=== PATIENT | female | born 2000 | race Caucasian/White ===

== ENCOUNTER 2018-06-29 17:01 | Emergency (ER) | payer BC ==
[2018-06-29 17:16] VITALS: RESP 18
[2018-06-29] MEDS ORDERED: DIPH,PERTUS(ACELL)TETVAC-LF 0.5 ML VIAL IM ONE (17:38)
--- NOTE | 2018-06-29 18:26 | XR ---
Left foot and left ankle HISTORY: Trauma and pain 3 views of the left foot and 3 views of the left ankle Bone mineralization, joint spaces and alignment are maintained. Soft tissue swelling noted at the ank le. IMPRESSION: No fracture or dislocation of the left foot or ankle
--- NOTE | 2018-06-29 18:33 | ED ---
General Adult HPI - General Chief complaint: Extremity Injury, Lower Stated complaint: ankle injury Time Seen by Provider: 06/29/18 17:28 Source: patient, RN notes reviewed, old records reviewed Mode of arrival: wheelchair Limitations: no limitations - History of Present Illness Initial comments: 17-year-old female patient upper intestinal history presents to ED with a left ankle injury. Patient reports that she was walking down a ramp from a moving truck approximately 18 inches off the ground when she actually stepped off of it, and he suffered an ankle inversion injury to her left ankle. Patient also suffered a minor abrasion to her right knee. Patient has been ambulatory with pain in her left ankle. Patient has any other injury sustained. Patient has any trauma to head or neck. Patient deniesa ny loss of consciousness. Patient does not know date of last tetanus. Patient declines tetanus updated today. Systemic: Pt denies fatigue, fever/chills, rash. Pt denies weakness, night sweats, weight loss. Neuro: Pt denies headache, visual disturbances, syncope or pre-syncope. HEENT: Pt denies ocular discharge or irritation, otalgia, rhinorrhea, pharyngitis or notable lymphadenopathy. Cardiopulmonary: Pt denies chest pain, SOB, heart palpitations, dyspnea on exertion. Abdominal/GI: Pt denies abdominal pain, n/v/d. : Pt denies dysuria, burning w/ urination, frequency/urgency. Denies new onset urinary or bowel incontinence. MSK: Pt denies loss of strength or function in extremities. Neuro: Pt denies new onset weakness, paresthesias. - Related Data Previous Rx's Medication Instructions Recorded Ondansetron Odt [Zofran Odt] 4 mg PO Q8HR PRN #12 tab 04/07/16 Allergies Allergy/AdvReac Type Severity Reaction Status Date / Time codeine Allergy Swelling Verified 06/29/18 17:16 Iodinated Contrast- Oral and Allergy Swelling Verified 06/29/18 17:16 IV Dye [Iodinated Contrast Media - Oral and] Penicillins Allergy Rash/Hives Verified 06/29/18 17:16 shellfish derived [Shellfish] Allergy Swelling Verified 06/29/18 17:16 Review of Systems ROS Statement: Those systems with pertinent positive or pertinent negative responses have been documented in the HPI. ROS Other: All systems not noted in ROS Statement are negative. Past Medical History Past Medical History: Asthma History of Any Multi-Drug Resistant Organisms: None Reported Past Surgical History: Cholecystectomy, Tonsillectomy Past Psychological History: No Psychological Hx Reported Smoking Status: Never smoker Past Alcohol Use History: None Reported Past Drug Use History: None Reported General Exam - General Exam Comments Initial Comments: Constitutional: NAD, AOX3, Pt has pleasant affect. HEENT: NC/AT, trachea midline, neck supple, no lymphadenopathy. Posterior pharynx non erythematous, without exudates. External ears appear normal, without discharge. Mucous membranes moist. Eyes PERRLA, EOM intact. There is no scleral icterus. No pallor noted. Cardiopulmonary: RRR, no murmurs, rubs or gallops, no JVD noted. Lungs CTAB in anterior and posterior la. No peripheral edema. Abdominal exam: Abdomen soft and non-distended. Abdomen non-tender to palpation in all 4 quadrants. Bowel sounds active in LLQ. No hepatosplenomegaly. No ecchymosis Neuro: CN II-XII grossly intact. No nuchal rigidity. MSK: Mild amount of edema and ecchymosis on lateral malleous of L ankle. Plantarflexion and dorsiflexion intact. Sensation intact. . Pt able to wiggle toes. No posterior calf tenderness bilaterally, homans sign negative bilaterally. Posterior tibialis and radial pulse +2 bilaterally. Sensation intact in upper and lower extremities. No proximal tibia/fibula tenderness. No other areas of tenderness. Patient placed in posterior ankle splint, neurovascularly intact after splint placement. Limitations: no limitations Course Vital Signs 06/29/18 17:12 Temperature 98.7 F Pulse Rate 100 Respiratory 18 Rate Blood Pressure 111/70 O2 Sat by Pulse 97 Oximetry Medical Decision Making - Medical Decision Making 17-year-old female patient upper intestinal history presents to ED with a left ankle injury. Patient reports that she was walking down a ramp from a moving truck approximately 18 inches off the ground when she actually stepped off of it, and he suffered an ankle inversion injury to her left ankle. Patient also suffered a minor abrasion to her right knee. Patient has been ambulatory with pain in her left ankle. Patient has any other injury sustained. Patient has any trauma to head or neck. Patient deniesa ny loss of consciousness. Patient does not know date of last tetanus. Patient declines tetanus updated today. Patient vital signs stable, afebrile. Physical exam displayed: Mild amount of edema and ecchymosis on lateral malleous of L ankle. Plantarflexion and dorsiflexion intact. Sensation intact. . Pt able to wiggle toes. No posterior calf tenderness bilaterally, homans sign negative bilaterally. Posterior tibialis and radial pulse +2 bilaterally. Sensation intact in upper and lower extremities. Plain films of left foot and ankle did not display any acute pathology. Patient placed in posterior ankle splint, neurovascularly intact after splint placement. Patient to use crutches, not bear weight. Patient to follow up with orthopedic consult 12 days. Patient to follow-up with PCP in 1-2 days. Patient to return to ER if condition worsens in any way. Disposition Clinical Impression: Ankle sprain Disposition: HOME SELF-CARE Condition: Stable Instructions (If sedation given, give patient instructions): Ankle Sprain (ED) Additional Instructions: Patient to adhere to previously discussed treatment plan and will take medication(s) as directed. Patient to follow up with PCP in 1-2 days. Patient to return to ED if symptoms do not improve. May use Tylenol or Motrin for pain. Is patient prescribed a controlled substance at d/c from ED?: No Referrals: Ifeanyi cD MD [Primary Care Provider] - 1-2 days Abelino Livingston MD [STAFF PHYSICIAN] - 1-2 days
[2018-06-29 19:12] VITALS: BP 134/76; PULSE 110; TEMP 98.8
== END 2018-06-29 19:12 | disposition home or self-care (01) ==
LOC: EC 17:01
DX: S93.402A Sprain of unspecified ligament of left ankle, initial encounter (principal); S80.211A Abrasion, right knee, initial encounter; Z91.19 Patient's noncompliance with other medical treatment and regimen; Z88.0 Allergy status to penicillin; Z88.5 Allergy status to narcotic agent; Z91.013 Allergy to seafood; Z91.041 Radiographic dye allergy status; W17.89XA Other fall from one level to another, initial encounter; Y93.01 Activity, walking, marching and hiking
CPT/HCPCS: 29515; 99284

== ENCOUNTER 2018-11-28 14:07 | Emergency (ER) | payer BC ==
[2018-11-28] MEDS ORDERED: SODIUM CHLORIDE 0.9% 1,000 ML IV STA (15:08)
[2018-11-28] MEDS ORDERED: FAMOTIDINE 20 MG/2 ML VIAL IV STA (15:09)
[2018-11-28] MEDS ORDERED: diphenhydrAMINE 50 MG/ML 1 ML VIAL IVP STA (15:09)
[2018-11-28] MEDS ORDERED: methylPREDNISolone SOD SUCCI 125 MG/2 ML VIAL IV STA (15:09)
[2018-11-28 15:34] LABS: Basophils % (A) 0 %; Eosinophils # (A) 0.1 k/uL (0-0.7); Eosinophils % (A) 1 %; HCT 45.8 % (34.0-46.0); HGB 14.7 gm/dL (11.4-16.0); Lymphocytes # (A) 2.8 k/uL (1.0-4.8); Lymphocytes % (A) 28 %; MCH 27.1 pg (25.0-35.0); MCHC 32.1 g/dL (31.0-37.0); MCV 84.4 fL (80.0-100.0); Mean Platelet Volume 7.6; Monocytes # (A) 0.4 k/uL (0-1.0); Monocytes % (A) 4 %; Neutrophils # (A) 6.5 k/uL (1.3-7.7); Neutrophils % (A) 65 %; Platelet Count 354 k/uL (150-450); RBC 5.43 m/uL (3.80-5.40); RDW 14.1 % (11.5-15.5); WBC 9.9 k/uL (4.0-11.0)
[2018-11-28 15:42] LABS: Appearance,Urine Cloudy (Clear); Bilirubin,Urine Negative (Negative); Blood,Urine Negative (Negative); Color,Urine Yellow; Glucose,Urine (UA) Negative (Negative); Ketones,Urine Negative (Negative); Leukocyte Esterase,Urine Moderate (Negative); Mucus,Urine Occasional /hpf; Nitrite,Urine Negative (Negative); PH, Urine 5.5 (5.0-8.0); Protein,Urine Negative (Negative); Specific Gravity,Urine 1.023 (1.001-1.035); Squamous Epithelial Cell,Urine 6 /hpf (0-4); Urobilinogen,Urine <2.0 mg/dL (<2.0)
[2018-11-28 15:43] LABS: ALT 37 U/L (9-52); AST 36 U/L (14-36); African American GFR (CKD) >90 (>60 ml/min/1.73 sqM); Albumin 4.9 g/dL (3.5-5.0); Alkaline Phosphatase 71 U/L (38-126); Anion Gap 13 mmol/L; Blood Urea Nitrogen 11 mg/dL (7-17); Calcium 9.9 mg/dL (8.4-10.2); Carbon Dioxide 23 mmol/L (22-30); Chloride 104 mmol/L (98-107); Glucose 87 mg/dL (74-99); Potassium 4.5 mmol/L (3.5-5.1); Sodium 140 mmol/L (137-145)
--- NOTE | 2018-11-28 17:06 | CT ---
EXAMINATION TYPE: CT abdomen pelvis w con DATE OF EXAM: 11/28/2018 COMPARISON: None HISTORY: RLQ pain CT DLP: 978.9 mGycm Automated exposure control for dose reduction was used. TECHNIQUE: Helical acquisition of images was performed from the lung bases through the pelvis. CONTRAST: Performed without Oral Contrast and with IV Contrast, patient injected with 100 mL of Isovue 300. FINDINGS: Lung bases are clear. There is no pleural effusion. Heart size is normal. There is no pericardial eff usion. Liver spleen stomach pancreas appear normal. Bile ducts are not dilated. There are clips from cholecy stectomy. There is no adrenal mass. Kidneys show satisfactory contrast opacification. There is no hydronephrosi s. Ureters are not dilated. Bladder distends smoothly. There is no inguinal hernia. Uterus is anteverted. There is no free fluid in the pelvis. There is probably 2.5 cm cyst on the righ t ovary. The appendix appears normal. There is no mesenteric edema. There is no sign of free air. There is no ascites. There is minimal wal l thickening of the ascending colon. Terminal ileum appears normal. Lumbar vertebra have normal spacing and alignment. Bony pelvis appears intact. I see no bony destruct jay process. IMPRESSION: NORMAL APPENDIX. THERE IS EVIDENCE OF MILD WALL THICKENING OF THE ASCENDING COLON THAT COULD RELATE T O MILD NONSPECIFIC COLITIS.
--- NOTE | 2018-11-28 18:05 | ED ---
Abdominal Pain HPI - General Chief Complaint: Abdominal Pain Stated Complaint: possible appendicitis Time Seen by Provider: 11/28/18 14:10 Source: patient Mode of arrival: ambulatory Limitations: no limitations - History of Present Illness Initial Comments: The patient is a 18-year-old female who presents to the emergency department from Dr. Tavera's office. She states that she began having periumbilical pain that started on Saturday. The pain has now localized to her right lower quadrant. She has associated nausea with dry heaving. Admits to decreased appetite. She denies diarrhea, constipation, melanotic stools or hematochezia. No changes in her urination to include dysuria, hematuria or difficulty voiding. Her last menstrual period was one week ago. She denies any abnormal vaginal bleeding or discharge. No concern for sexually transmitted infections or . She did go to Dr. Tavera's office today. He wanted to get a CT of her abdomen and pelvis however she does have a contrast ALLERGY. He sent her into the emergency department for prep and CT exam. The patient denies any chest pain or shortness of breath. No fevers at home. There are no other alleviating, precipitating or modifying factors - Related Data Previous Rx's Medication Instructions Recorded Ondansetron Odt [Zofran Odt] 4 mg PO Q8HR PRN #12 tab 04/07/16 Ciprofloxacin HCl [Cipro] 500 mg PO Q12HR #20 tablet 11/28/18 metroNIDAZOLE [Flagyl] 500 mg PO TID #30 tab 11/28/18 Allergies Allergy/AdvReac Type Severity Reaction Status Date / Time codeine Allergy Swelling Verified 11/28/18 14:11 Iodinated Contrast- Oral and Allergy Swelling Verified 11/28/18 14:11 IV Dye [Iodinated Contrast Media - Oral and] morphine Allergy Unknown Verified 11/28/18 14:12 Penicillins Allergy Rash/Hives Verified 11/28/18 14:11 shellfish derived [Shellfish] Allergy Swelling Verified 11/28/18 14:11 Review of Systems ROS Statement: Those systems with pertinent positive or pertinent negative responses have been documented in the HPI. ROS Other: All systems not noted in ROS Statement are negative. Past Medical History Past Medical History: Asthma History of Any Multi-Drug Resistant Organisms: None Reported Past Surgical History: Cholecystectomy, Tonsillectomy Past Psychological History: No Psychological Hx Reported Smoking Status: Never smoker Past Alcohol Use History: None Reported Past Drug Use History: None Reported General Exam Limitations: no limitations General appearance: alert, in no apparent distress Head exam: Present: atraumatic, normocephalic, normal inspection Eye exam: Present: normal appearance, PERRL, EOMI. Absent: scleral icterus, conjunctival injection, periorbital swelling ENT exam: Present: normal exam, mucous membranes moist Neck exam: Present: normal inspection. Absent: tenderness, meningismus, lymphadenopathy Respiratory exam: Present: normal lung sounds bilaterally. Absent: respiratory distress, wheezes, rales, rhonchi, stridor Cardiovascular Exam: Present: regular rate, normal rhythm, normal heart sounds. Absent: systolic murmur, diastolic murmur, rubs, gallop, clicks GI/Abdominal exam: Present: soft, tenderness (mild tenderness in the periumbilical region. No peritoneal signs. ), normal bowel sounds. Absent: distended, guarding, rebound, rigid Extremities exam: Present: normal inspection, full ROM, normal capillary refill. Absent: tenderness, pedal edema, joint swelling, calf tenderness Back exam: Present: normal inspection Neurological exam: Present: alert, oriented X3, CN II-XII intact Psychiatric exam: Present: normal affect, normal mood Skin exam: Present: warm, dry, intact, normal color. Absent: rash Course Vital Signs 11/28/18 11/28/18 14:09 18:38 Temperature 98.5 F 98.0 F Pulse Rate 86 82 Respiratory 16 17 Rate Blood Pressure 123/79 110/70 O2 Sat by Pulse 98 99 Oximetry Medical Decision Making - Medical Decision Making Upon arrival the patient is placed in room 27. She is hooked up to continuous pulse ox and cardiac monitoring. We did obtain IV access. The patient was given the rapid prep for her contrast ALLERGY. She is also given a liter bolus of 0.9% normal saline. I did complete laboratory studies. The patient provides a urinalysis. She is sent for CT of her abdomen and pelvis. Upon return of the results, I did review them and discussed with the patient. I did call and discuss the case with Dr. Tavera. As the patient's CT did demonstrate colitis, I discussed antibiotic use with him. He does recommended I place the patient on antibiotics. The patient does have a penicillin ALLERGY. He does believe that the benefits of use with Cipro and Flagyl outweigh the risks. I did discuss this with the patient. I did inform her of the side effect profile. I instructed her that she will need to limit her physical activity due to risk of tendon rupture. The patient understood this. She needs to call on Saturday and follow up with Dr. Tavera in office. The patient understood this. If she has any new or worsening symptoms she should return to the emergency room. The patient was in agreement treatment plan she is discharged home in stable condition - Differential Diagnosis acute abd pain, acute colitis - Lab Data Result diagrams: 11/28/18 14:58 11/28/18 14:58 Lab Results 11/28/18 11/28/18 11/28/18 Range/Units 14:58 14:58 14:58 WBC 9.9 (4.0-11.0) k/uL RBC 5.43 H (3.80-5.40) m/uL Hgb 14.7 (11.4-16.0) gm/dL Hct 45.8 (34.0-46.0) % MCV 84.4 (80.0-100.0) fL MCH 27.1 (25.0-35.0) pg MCHC 32.1 (31.0-37.0) g/dL RDW 14.1 (11.5-15.5) % Plt Count 354 (150-450) k/uL Neutrophils % 65 % Lymphocytes % 28 % Monocytes % 4 % Eosinophils % 1 % Basophils % 0 % Neutrophils # 6.5 (1.3-7.7) k/uL Lymphocytes # 2.8 (1.0-4.8) k/uL Monocytes # 0.4 (0-1.0) k/uL Eosinophils # 0.1 (0-0.7) k/uL Basophils # 0.0 (0-0.2) k/uL Sodium 140 (137-145) mmol/L Potassium 4.5 (3.5-5.1) mmol/L Chloride 104 (98-107) mmol/L Carbon Dioxide 23 (22-30) mmol/L Anion Gap 13 mmol/L BUN 11 (7-17) mg/dL Creatinine 0.61 (0.52-1.04) mg/dL Est GFR (CKD-EPI)AfAm >90 (>60 ml/min/1.73 sqM) Est GFR (CKD-EPI)NonAf >90 (>60 ml/min/1.73 sqM) Glucose 87 (74-99) mg/dL Plasma Lactic Acid Magnus (0.7-2.0) mmol/L Calcium 9.9 (8.4-10.2) mg/dL Total Bilirubin 1.0 (0.2-1.3) mg/dL AST 36 (14-36) U/L ALT 37 (9-52) U/L Alkaline Phosphatase 71 (38-126) U/L Total Protein 8.0 (6.3-8.2) g/dL Albumin 4.9 (3.5-5.0) g/dL Lipase 89 (23-300) U/L Urine Color Urine Appearance (Clear) Urine pH (5.0-8.0) Ur Specific [place] (1.001-1.035) Urine Protein (Negative) Urine Glucose (UA) (Negative) Urine Ketones (Negative) Urine Blood (Negative) Urine Nitrite (Negative) Urine Bilirubin (Negative) Urine Urobilinogen (<2.0) mg/dL Ur Leukocyte Esterase (Negative) Urine WBC (0-5) /hpf Ur Squamous Epith Cells (0-4) /hpf Urine Mucus (None) /hpf Urine HCG, Qual Not Detected (Not Detectd) 11/28/18 11/28/18 Range/Units 14:58 14:58 WBC (4.0-11.0) k/uL RBC (3.80-5.40) m/uL Hgb (11.4-16.0) gm/dL Hct (34.0-46.0) % MCV (80.0-100.0) fL MCH (25.0-35.0) pg MCHC (31.0-37.0) g/dL RDW (11.5-15.5) % Plt Count (150-450) k/uL Neutrophils % % Lymphocytes % % Monocytes % % Eosinophils % % Basophils % % Neutrophils # (1.3-7.7) k/uL Lymphocytes # (1.0-4.8) k/uL Monocytes # (0-1.0) k/uL Eosinophils # (0-0.7) k/uL Basophils # (0-0.2) k/uL Sodium (137-145) mmol/L Potassium (3.5-5.1) mmol/L Chloride (98-107) mmol/L Carbon Dioxide (22-30) mmol/L Anion Gap mmol/L BUN (7-17) mg/dL Creatinine (0.52-1.04) mg/dL Est GFR (CKD-EPI)AfAm (>60 ml/min/1.73 sqM) Est GFR (CKD-EPI)NonAf (>60 ml/min/1.73 sqM) Glucose (74-99) mg/dL Plasma Lactic Acid Magnus 1.1 (0.7-2.0) mmol/L Calcium (8.4-10.2) mg/dL Total Bilirubin (0.2-1.3) mg/dL AST (14-36) U/L ALT (9-52) U/L Alkaline Phosphatase (38-126) U/L Total Protein (6.3-8.2) g/dL Albumin (3.5-5.0) g/dL Lipase (23-300) U/L Urine Color Yellow Urine Appearance Cloudy H (Clear) Urine pH 5.5 (5.0-8.0) Ur Specific [place] 1.023 (1.001-1.035) Urine Protein Negative (Negative) Urine Glucose (UA) Negative (Negative) Urine Ketones Negative (Negative) Urine Blood Negative (Negative) Urine Nitrite Negative (Negative) Urine Bilirubin Negative (Negative) Urine Urobilinogen <2.0 (<2.0) mg/dL Ur Leukocyte Esterase Moderate H (Negative) Urine WBC 16 H (0-5) /hpf Ur Squamous Epith Cells 6 H (0-4) /hpf Urine Mucus Occasional H (None) /hpf Urine HCG, Qual (Not Detectd) Disposition Clinical Impression: Abdominal pain, Acute colitis Disposition: HOME SELF-CARE Condition: Stable Instructions (If sedation given, give patient instructions): Abdominal Pain (ED) Additional Instructions: Please follow-up with Dr. Wright in 2-4 days. Return to the emergency room for any new or worsening symptoms Prescriptions: Ciprofloxacin HCl [Cipro] 500 mg PO Q12HR #20 tablet metroNIDAZOLE [Flagyl] 500 mg PO TID #30 tab Is patient prescribed a controlled substance at d/c from ED?: No Referrals: McPhilimy,Tawanda, DO [Primary Care Provider] - 1-2 days Time of Disposition: 18:16
[2018-11-28 18:39] VITALS: BP 110/70; PULSE 82; RESP 17; TEMP 98
== END 2018-11-28 18:41 | disposition home or self-care (01) ==
LOC: EC 14:07
DX: K52.9 Noninfective gastroenteritis and colitis, unspecified (principal); Z90.49 Acquired absence of other specified parts of digestive tract; Z88.5 Allergy status to narcotic agent; Z91.041 Radiographic dye allergy status; Z88.0 Allergy status to penicillin; Z91.013 Allergy to seafood
CPT/HCPCS: 99284; 96374; 96375 ×2; 96361 ×2; 36415; 80053; 83605; 83690; 85025; 81001; 81025; 87086; 74177; J1200; J2930; Q9967

== ENCOUNTER 2019-09-24 09:40 | Outpatient (CLI) | payer BC, OTHER ==
[2019-09-24 10:47] LABS: Appearance,Urine Cloudy (Clear); Bacteria,Urine Many /hpf; Bilirubin,Urine Negative (Negative); Blood,Urine Small (Negative); Color,Urine Yellow; Glucose,Urine (UA) Negative (Negative); Ketones,Urine 4+ (Negative); Leukocyte Esterase,Urine Large (Negative); Mucus,Urine Many /hpf; Nitrite,Urine Negative (Negative); Protein,Urine 2+ (Negative); RBC,Urine 34 /hpf (0-5); Squamous Epithelial Cell,Urine 8 /hpf (0-4); WBC,Urine >182 /hpf (0-5)
[2019-09-24] MEDS ORDERED: ONDANSETRON 4 MG/2 ML VIAL IVP STA (10:59)
[2019-09-24] MEDS: LACTATED RINGERS 1,000 ML IV SCH ×3 (11:11→13:18)
[2019-09-24 13:22] LABS: Basophils % (A) 0 %; Eosinophils % (A) 0 %; HCT 36.4 % (34.0-46.0); HGB 11.5 gm/dL (11.4-16.0); Lymphocytes # (A) 1.5 k/uL (1.0-4.8); Lymphocytes % (A) 11 %; MCH 26.6 pg (25.0-35.0); MCHC 31.6 g/dL (31.0-37.0); MCV 84.2 fL (80.0-100.0); Mean Platelet Volume 8.8; Monocytes # (A) 0.8 k/uL (0-1.0); Monocytes % (A) 6 %; Neutrophils # (A) 10.9 k/uL (1.3-7.7); Neutrophils % (A) 81 %; Platelet Count 245 k/uL (150-450); RBC 4.33 m/uL (3.80-5.40); RDW 13.8 % (11.5-15.5); WBC 13.4 k/uL (4.0-11.0)
[2019-09-24 15:04] VITALS: BP 122/73; PULSE 133; RESP 16; TEMP 99.1
--- NOTE | 2019-10-10 11:13 | P.MSEPDOC ---
Presenting Problems - Arrival Data Date of Arrival on Unit: 09/24/19 Time of Arrival on Unit: 09:40 Mode of Transport: Ambulatory - Complaint OB-Reason for Admission/Chief Complaint: Acute Nausea/Vomiting, Pain, Signs/Symptoms UTI Comment: constant lower back pain, rates 7 on 0-10 scale Medical History - Information : 1 Para: 0 Term: 0 : 0 Abortions: Spontaneous or Elective: 0 Number of Living Children: 0 - Gestational Age Gestational Age by FAUSTINO (wks/days): 31 Weeks and 2 Days Review of Systems - Review of Systems Constitutional: No problems Breast: No problems ENT: No problems Cardiovascular: No problems Respiratory: No problems Gastrointestinal: No problems Genitourinary: No problems Musculoskeletal: No problems Neurological: No problems Skin: No problems Vital Signs - Temperature Temperature: 99.1 F Temperature Source: Oral - Pulse Right Sitting Pulse Rate: 133 Pulse Assessment Method: Automatic Cuff - Respirations Respiratory Rate: 16 Oxygen Delivery Method: Room Air O2 Sat by Pulse Oximetry: 96 - Blood Pressure Right Arm Blood Pressure: 122/73 Blood Pressure Mean: 89 Blood Pressure Source: Automatic Cuff Medical Screen Scoring (Pre) - Cervical Exam Dilation: Exam Deferred Effacement: Exam Deferred - Uterine Contractions Frequency: N/A Duration: N/A Intensity: N/A - Maternal Vital Signs Maternal Temperature: N/A Maternal Blood Pressure: N/A Signs of Preeclampsia: N/A Maternal Respirations: N/A - Maternal Trauma Maternal Trauma: N/A - Assessment - Baby A Baseline FHR: 150 Heart Rate - NICHD Category: Category I (Normal) = 0 NST: Reactive Position: N/A Station: N/A - Total Score - Baby A Total Score - Baby A: 0 - Total Score - Baby B Total Score - Baby B: 0 - Total Score - Baby C Total Score - Baby C: 0 - Level of Risk - Baby A Level of Risk - Baby A: Low (0-5) - Level of Risk - Baby B Level of Risk - Baby B: Low (0-5) - Level of Risk - Baby C Level of Risk - Baby C: Low (0-5) Physician Notification (Pre) - Physician Notified Physician Notified Date: 09/24/19 Physician Notified Time: 13:56 New Order Received: Yes (d/c home) Disposition - Disposition OB Disposition: Discharge to home Discharge Date: 09/24/19 Discharge Time: 14:20 I agree with the RN Medical Screening Exam: Yes Risk & Benefit of care provided described in d/c instruction: Yes Diagnosis: RELATED CONDITIONS, UNSPECIFIED, THIRD TRIMESTER
== END 2019-09-24 14:20 | disposition home or self-care (01) ==
LOC: FBPOP 09:40
PROVIDERS: ATTEND Obstetrics & Gynecology
DX: O26.93 Pregnancy related conditions, unspecified, third trimester (principal); Z3A.31 31 weeks gestation of pregnancy
CPT/HCPCS: 59025; 99214; 96361; 96374; 85025; 81001; 87086; 87077; 87186; J2405

== ENCOUNTER 2019-11-24 14:35 | Inpatient (IN) | payer OTHER ==
[2019-11-26] MEDS ORDERED: METHYLERGONOVINE 0.2 MG/ML 1 ML AMP IM PRN (06:47)
[2019-11-26] MEDS ORDERED: OXYTOCIN 10 UNIT/ML 1 ML VIAL IM PRN (06:47)
[2019-11-26] MEDS ORDERED: CARBOPROST TROMETHAMINE 250 MCG/ML 1 ML AMP IM PRN (06:47)
[2019-11-26] MEDS ORDERED: TERBUTALINE 1 MG/ML VIAL SQ PRN (06:47)
[2019-11-26] MEDS ORDERED: LIDOCAINE 0.5% (PF) 5 MG/ML (50 ML SDV) SQ PRN (06:47)
[2019-11-26] MEDS: LACTATED RINGERS 1,000 ML IV SCH ×2 (06:48→12:34)
[2019-11-26] MEDS ORDERED: OXYTOCIN 30 UNITS/500 ML NS 30 UNIT in SALINE 1 500ML.BAG IV SCH (07:00)
[2019-11-26 07:10] LABS: Basophils % (A) 0 %; Eosinophils # (A) 0.1 k/uL (0-0.7); Eosinophils % (A) 1 %; HGB 12.5 gm/dL (11.4-16.0); Lymphocytes % (A) 23 %; MCH 25.7 pg (25.0-35.0); MCHC 32.1 g/dL (31.0-37.0); Mean Platelet Volume 9.7; Monocytes # (A) 0.5 k/uL (0-1.0); Monocytes % (A) 4 %; Neutrophils # (A) 9.1 k/uL (1.3-7.7); Neutrophils % (A) 71 %; Platelet Count 306 k/uL (150-450); RBC 4.88 m/uL (3.80-5.40); RDW 14.8 % (11.5-15.5); WBC 12.9 k/uL (3.8-10.6)
--- NOTE | 2019-11-26 08:56 | P.HPOB ---
History of Present Illness H&P Date: 11/26/19 Chief Complaint: 40-2/7 weeks, induction Is a 19-year-old 1 para 0 admitted at 40-2/7 weeks as established by 9 week ultrasound. She is admitted for postdates induction of labor with favorable cervix. Her has been uncomplicated though she is known to be Rh- and received RhoGAM at 28 weeks. Group B strep status is negative. On labor and delivery, all signs reassuring with reactive heart rate tracing, category 1. Obstetrical history: 1 para 0 with current statistics listed in history present illness. EDC of 11/24/2019 was established by 9 week ultrasound. Laboratory workup demonstrates a blood type of B- with a negative antibody screen. Rubella status is immune. Remainder of the laboratory workup was within normal limits. Early Glucola as well as second trimester Glucola were within normal limits. Group B strep status is negative. Gynecologic history: Unremarkable with no history of any infections to include S TDs. Review of Systems Review of systems is confined to history of present illness. Past Medical History Past Medical History: Asthma Additional Past Medical History / Comment(s): childhood asthma, IBS resolved History of Any Multi-Drug Resistant Organisms: None Reported Past Surgical History: Cholecystectomy, Tonsillectomy Additional Past Surgical History / Comment(s): neck cyst removed Past Anesthesia/Blood Transfusion Reactions: No Reported Reaction Past Psychological History: No Psychological Hx Reported Smoking Status: Never smoker Past Alcohol Use History: None Reported Past Drug Use History: None Reported - Past Family History Mother Family Medical History: No Reported History Medications and Allergies Home Medications Medication Instructions Recorded Confirmed Type Ondansetron Odt [Zofran Odt] 4 mg PO Q8HR PRN #12 tab 04/07/16 11/26/19 Rx Esomeprazole Magnesium [NexIUM] 1 tab PO DAILY 09/24/19 11/26/19 History Allergies Allergy/AdvReac Type Severity Reaction Status Date / Time codeine Allergy Swelling Verified 11/26/19 06:46 Iodinated Contrast Media Allergy Swelling Verified 11/26/19 06:46 [Iodinated Contrast Media - Oral and] morphine Allergy Swelling Verified 11/26/19 06:46 Penicillins Allergy Rash/Hives Verified 11/26/19 06:46 shellfish derived [Shellfish] Allergy Swelling Verified 11/26/19 06:46 Exam Vital Signs Temp Pulse Resp BP Pulse Ox 11/26/19 06:55 97.8 F 114 H 18 130/79 98 Intake and Output 11/25/19 11/26/19 11/26/19 22:59 06:59 14:59 Other: Weight 95.708 kg In general, this is a well-developed, well-nourished white female in no acute distress. Her heart has a regular rhythm and rate without murmur. Her lungs are clear to auscultation bilaterally in all la. Her abdomen is gravid, nondistended, has normal active bowel sounds, soft, nontender, and without any palpable masses aside from uterine fundus. Her extremities without any cyanosis, clubbing, or significant edema and are nontender to palpation bilaterally. Digital cervical examination on straights her cervix to be 37 m dilated, 70% effaced, the vertex in presentation at -2 station. Artificial rupture of membranes is carried out demonstrating clear fluid. Results Result Diagrams: 11/26/19 06:50 Abnormal Lab Results - Last 24 Hours (Table) 11/26/19 Range/Units 06:50 WBC 12.9 H (3.8-10.6) k/uL Neutrophils # 9.1 H (1.3-7.7) k/uL Assessment and Plan (1) Post-dates Current Visit: Yes Status: Acute Code(s): O48.0 - POST-TERM SNOMED Code(s): 20643966 Plan: The patient is admitted for Pitocin induction which has been started. She has undergone artificial rupture of membranes. She will have close maternal and surveillance and expectant management will be practiced. She is a good candidate for either IV or epidural analgesia, whichever she may choose.
[2019-11-26] MEDS ORDERED: SODIUM CHLORIDE 0.9% 100 ML BAG ONE ×2 (12:07→19:47)
[2019-11-26] MEDS ORDERED: ROPIVACAINE 5MG/ML 20ML VIAL ONE ×2 (12:07→19:47)
[2019-11-26] MEDS ORDERED: fentaNYL (PF) 50 MCG/ML 5 ML AMP ONE ×2 (12:07→19:47)
[2019-11-26] MEDS ORDERED: CITRIC ACID-SODIUM CITRATE 15 ML CUP PO ONE (19:40)
[2019-11-26] MEDS ORDERED: ONDANSETRON 4 MG/2 ML VIAL ONE (19:47)
[2019-11-26] MEDS ORDERED: KETOROLAC 30 MG/ML 1 ML VIAL ONE (19:47)
[2019-11-26] MEDS ORDERED: HYDROmorphone (PF) 1 MG/ML ONE (19:47)
[2019-11-26] MEDS ORDERED: PROPOFOL 10 MG/ML 20 ML VIAL IV ONE (19:47)
[2019-11-26] MEDS ORDERED: CHLOROPROCAINE 3% 30 MG/ML 20 ML VIAL ONE (19:47)
[2019-11-26] MEDS ORDERED: OXYTOCIN 10 UNIT/ML 1 ML VIAL ONE (19:47)
[2019-11-26] MEDS ORDERED: SUCCINYLCHOLINE CHLORIDE 100 MG/5 ML SYR IV ONE (19:47)
[2019-11-26] MEDS ORDERED: CLINDAMYCIN 150 MG/ML 4 ML VIAL ONE (19:47)
[2019-11-26] MEDS ORDERED: diphenhydrAMINE 50 MG CAP PO PRN (20:55)
[2019-11-26] MEDS ORDERED: ZOLPIDEM 5 MG TAB PO PRN (20:55)
[2019-11-26] MEDS ORDERED: diphenhydrAMINE 50 MG/ML 1 ML VIAL IVP PRN ×2 (20:55)
[2019-11-26] MEDS ORDERED: ACETAMINOPHEN TAB 325 MG TAB PO PRN (20:55)
[2019-11-26] MEDS ORDERED: HYDROcodone/APAP 7.5-325MG 1 EACH TAB PO PRN (20:55)
[2019-11-26] MEDS ORDERED: NALOXONE 0.4 MG/ML 1 ML VIAL IV PRN (20:55)
[2019-11-26] MEDS ORDERED: ONDANSETRON 4 MG/2 ML VIAL IVP PRN (20:55)
[2019-11-26] MEDS ORDERED: diphenhydrAMINE 25 MG CAP PO PRN (20:55)
[2019-11-26] MEDS ORDERED: SIMETHICONE 80 MG CHEWABLE PO PRN (20:55)
[2019-11-26] MEDS ORDERED: METOCLOPRAMIDE 5 MG/ML 2 ML VIAL IVP PRN (20:55)
[2019-11-26] MEDS ORDERED: HYDROcodone/APAP 5-325MG 1 EACH TAB PO PRN (20:55)
[2019-11-26] MEDS ORDERED: LACTATED RINGERS 1,000 ML IV SCH (21:00)
[2019-11-26] MEDS ORDERED: OXYTOCIN 20 UNITS/1000 ML NS 1,000 ML IV SCH (21:00)
--- NOTE | 2019-11-26 21:07 | P.OP ---
Date of Procedure: 11/26/19 Preoperative Diagnosis: #1. 40-2/7 weeks intrauterine , induction #2. Rh- #3. Arrest of dilation and descent Postoperative Diagnosis: Same plus #4. Nuchal cord 1 Procedure(s) Performed: #1. Primary low-transverse section Anesthesia: MIKI Surgeon: Gurmeet Mayer Track Manager #1: Trisha Puentes Estimated Blood Loss (ml): 650 IV fluids (ml): 1,000 Urine output (ml): 400 Pathology: none sent Condition: stable Disposition: floor Operative Findings: Preoperatively, the patient had labored to approximately 8 cm of dilation with no descent below -2 station. It was forming on the head and no significant dilation changes were made over the course of approximate 2 hours or more. The patient was also having significantly increasing discomfort. She was additionally thought to have a somewhat contracted pelvic shape. Given these findings, we opted to proceed to primary low transverse section. She was taken to the operating room where she was delivered of a viable 7 lbs. 12 oz. baby girl with Apgars of 9 at 1 minute and 9 at 5 minutes delivered in the right occiput anterior position. There was a loose nuchal cord 1 reduced prior to delivery of the body. 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 The placenta was delivered manually, intact, and grossly normal with a grossly normal three-vessel cord. Description of Procedure: The patient was prepped and draped in usual fashion after epidural analgesia was bolused by the anesthesiologist. The epidural was found to be ineffective and general endotracheal anesthesia was established. At that time, a Pfannenstiel incision was made and extended into the abdominal cavity without difficulty. The bladder peritoneum was noted to be distal to the intended site of incision and left intact. A 2 cm incision was made in the transverse plane of the lower uterine segment to enter the uterus at which time clear fluid was again noted. The incision was extended in both directions bluntly. The head was encountered deep in the pelvis and elevated up and through the incision. The nuchal cord was reduced and the remainder of the infant delivered onto the field where the cord was doubly clamped, cut, and the infant passed resuscitative measures with weight and Apgars as noted above. cord blood was collected for evaluation of the necessity for RhoGAM. A segment of cord was doubly clamped, cut, and set aside should cord gases become necessary. The placenta was delivered manually and intact as noted above. The uterus was exteriorized and the interior cavity of the uterus swept of any remaining placental or membranous fragments. The margins of the incision were grasped with Reyna clamps and the incision closed in 2 layers. The first layer was a running lock ing stitch of 0 chromic catgut followed by a running imbricating layer of 0 chromic catgut. There was some bleeding noted at the left angle of the incision which was made hemostatic with a [id number] stitch of 0 chromic catgut. No further bleeding was then noted. The posterior cul-de-sac was suctioned with a guard with the uterine and ovarian findings as noted above, specifically a small possible left ovarian fibroma was noted as described in findings. The posterior cul-de-sac was suctioned with a guard and uterus was replaced within the abdominal cavity. The gutters were swept of any remaining blood, fluid, or clot. After ensuring hemostasis, the parietal peritoneum was loosely reapproximated and layer of muscles examined and found to be hemostatic. The fascia was closed with 2 running stitches of 0 Vicryl proceeding from the lateral margins to the midpoint. The subcutaneous tissues were irrigated, made hemostatic with the Bovie, and reapproximated with a running stitch of 30 plain catgut. The skin was reapproximated with a running subcuticular stitch of 4-0 Vicryl followed by half-inch Steri-Strips placed with Mastisol. Estimated blood loss for the entire case was approximately 650 mL. There were no complications. All sponge, instrument, and needle counts were correct. The patient tolerated the procedure well and proceeded to the recovery room in stable condition. Both mother and infant are resting comfortably in recovery.
[2019-11-26] MEDS ORDERED: HYDROmorphone PCA 10 MG/50 ML BAG IV PRN (22:00)
[2019-11-27] MEDS: KETOROLAC 30 MG/ML 1 ML VIAL IVP PRN ×2 (03:50→10:22)
[2019-11-27 06:03] LABS: Basophils % (A) 0 %; Eosinophils % (A) 0 %; HCT 31.8 % (34.0-46.0); HGB 10.3 gm/dL (11.4-16.0); Lymphocytes # (A) 1.8 k/uL (1.0-4.8); Lymphocytes % (A) 14 %; MCHC 32.3 g/dL (31.0-37.0); MCV 80.4 fL (80.0-100.0); Mean Platelet Volume 9.3; Monocytes # (A) 0.5 k/uL (0-1.0); Monocytes % (A) 4 %; Neutrophils % (A) 81 %; Platelet Count 217 k/uL (150-450); RBC 3.96 m/uL (3.80-5.40); RDW 14.7 % (11.5-15.5); WBC 12.5 k/uL (3.8-10.6)
[2019-11-27] MEDS: SENNOSIDES-DOCUSATE SODIUM 1 EACH TAB PO SCH ×2 (07:43→20:18)
--- NOTE | 2019-11-27 09:44 | P.PNOBGPC ---
Subjective - Subjective Patient reports: Reports appetite normal, Reports voiding normally, Reports pain well controlled, Reports ambulating normally : doing well Objective - Vital Signs Latest vital signs: Vital Signs Temp Pulse Resp BP Pulse Ox 11/27/19 07:54 98.3 F 107 H 17 111/65 11/27/19 04:00 98.9 F 82 16 116/73 95 11/27/19 00:00 98.6 F 82 16 118/70 95 11/26/19 22:50 97.9 F 90 16 122/70 96 11/26/19 22:20 92 16 126/73 97 11/26/19 21:50 91 16 124/66 96 11/26/19 21:35 93 16 128/70 97 11/26/19 21:20 93 16 134/76 100 11/26/19 21:05 99 16 130/74 100 11/26/19 20:50 114 H 16 131/76 90 L Intake and Output 11/26/19 11/27/19 11/27/19 22:59 06:59 14:59 Output Total 700 1300 Balance -700 -1300 Output: Urine 700 1300 Straight 700 - Exam Extremities: Present: normal Abdomen: Present: normal appearance, soft. Absent: distention, tenderness Incision: Present: normal, dry, intact Uterus: Present: normal, firm (The uterine fundus is tonic and a properly tender just below the umbilicus.) - Labs Labs: Abnormal Lab Results - Last 24 Hours (Table) 11/27/19 Range/Units 05:38 WBC 12.5 H (3.8-10.6) k/uL Hgb 10.3 L (11.4-16.0) gm/dL Hct 31.8 L (34.0-46.0) % Neutrophils # 10.0 H (1.3-7.7) k/uL Assessment and Plan (1) Post-dates Current Visit: Yes Status: Acute Code(s): O48.0 - POST-TERM SNOMED Code(s): 28898859 (2) S/P section Current Visit: Yes Status: Acute Code(s): Z98.891 - HISTORY OF UTERINE SCAR FROM PREVIOUS SURGERY SNOMED Code(s): 422694573 Plan: Continue routine postoperative care. I have strongly encouraged the patient amulet in the hallways at least 4 times daily. I will discontinue the [employer] in favor of oral analgesics. We will additionally stop IV fluids but leave the IV in place for this time being. Possible discharge home tomorrow pending no co mplications.
[2019-11-27] MEDS: IBUPROFEN 600 MG TAB PO PRN (20:16)
[2019-11-28] MEDS: IBUPROFEN 600 MG TAB PO PRN ×2 (03:10→09:17)
[2019-11-28 09:05] VITALS: BP 120/73; PULSE 99; RESP 16; TEMP 98.1
[2019-11-28] MEDS: SENNOSIDES-DOCUSATE SODIUM 1 EACH TAB PO SCH (09:17)
--- NOTE | 2019-11-28 09:43 | P.DS ---
Providers Date of admission: 11/26/19 06:29 Expected date of discharge: 11/28/19 Attending physician: Gurmeet Mayer Primary care physician: Stated None Hospital Course: This is a 19-year-old white female 1 para 0 EDC 11/24/2019 40-2/7 weeks' gestation. Patient presented for induction for postdates . Artificial amniorrhexis revealed clear fluid. Oxytocin was started and titrated per hospital protocol. Epidural was placed per her request. A type is B-, rubella status immune, group B strep cultures negative. Please see dictated history and physical for details. Ultimately the decision was made to proceed with a primary low transverse section for failure to descend in the second stage of labor. Patient underwent a primary low transverse section and gave to a liveborn female with scores of 9 and 9 at one and 5 minutes respectively. Infant weighed 7 lbs. 12 oz. or 3510 g. There was a nuchal cord 1. Please see dictated operative note for details. Postoperatively the patient has done very well. This morning she is voiding, ambulating, passing flatus without difficulty. Vital signs are stable and she is afebrile. Fundus is firm and in the midline, symmetric and 18 week size. Extremities are negative for edema incision is clean and dry, intact, with Steri-Strips applied. Breasts are not engorged. Patient is judged to be in very good condition for discharge home. She will follow-up in the office with her primary care physician in 2 weeks. I have reminded her no intercourse, tampons or douching. She will use jufk-[id number]-[id number] Advil or Aleve, or Motrin as needed for pain. In addition, her primary physician has given her prescription for [place] 5/325 mg to be used for moderate to severe pain. Patient will call the office with any fevers shakes or chills, foul smelling or copious lochia, with the passage of large blood clots, with any pain not alleviated by the above products, or indeed with any concerns. Test Baker will follow up with as recommended. Patient Condition at Discharge: Good Plan - Discharge Summary New Discharge Prescriptions: No Action Ondansetron Odt [Zofran Odt] 4 mg PO Q8HR PRN #12 tab PRN Reason: Nausea Esomeprazole Magnesium [NexIUM] 1 tab PO DAILY Discharge Medication List Ondansetron Odt [Zofran Odt] 4 mg PO Q8HR PRN #12 tab 04/07/16 [Rx] Esomeprazole Magnesium [NexIUM] 1 tab PO DAILY 09/24/19 [History] Follow up Appointment(s)/Referral(s): Gurmeet Mayer MD [STAFF PHYSICIAN] - 2 Weeks
== END 2019-11-28 11:39 | disposition home or self-care (01) | DRG 788 ==
LOC: 4FBP 11-26 06:29
PROVIDERS: ADMIT Obstetrics & Gynecology; ATTEND Obstetrics & Gynecology
PROC: 10D00Z1 Extraction of Products of Conception, Low, Open Approach (ICD-10-PCS; principal; 2019-11-26 20:10)
DX: O69.81X0 Labor and delivery complicated by cord around neck, without compression, not applicable or unspecified (principal); O48.0 Post-term pregnancy; O99.52 Diseases of the respiratory system complicating childbirth; O62.1 Secondary uterine inertia; J45.909 Unspecified asthma, uncomplicated; Z90.89 Acquired absence of other organs; Z90.49 Acquired absence of other specified parts of digestive tract; Z3A.40 40 weeks gestation of pregnancy; Z37.0 Single live birth; Z91.041 Radiographic dye allergy status; Z88.5 Allergy status to narcotic agent; Z88.0 Allergy status to penicillin; Z91.013 Allergy to seafood
CPT/HCPCS: 85025; 86850; 86870; 86880; 86900; 86901

== ENCOUNTER 2020-06-24 15:18 | Emergency (ER) | payer OTHER ==
[2020-06-24 15:24] VITALS: BP 129/81; PULSE 96; RESP 20; TEMP 99.4
--- NOTE | 2020-06-24 16:13 | ED ---
Lower Extremity Injury HPI - General Chief Complaint: Extremity Injury, Lower Stated Complaint: Ankle pain Time Seen by Provider: 06/24/20 15:41 Source: patient, RN notes reviewed Mode of arrival: ambulatory Limitations: no limitations - History of Present Illness Initial Comments: 19-year-old female presents emergency Department with chief complaint of right ankle injury. Patient states she steps unevenly on a crack by her porch. Patient states that she felt a snap in her swelling on the lateral portion right ankle. Patient does admit that she's had prior fractures and sprains. Patient states it hurts to ambulate but states that she can ambulate. No paresthesias. No other complaints. - Related Data Home Medications Medication Instructions Recorded Confirmed Esomeprazole Magnesium [NexIUM] 1 tab PO DAILY 09/24/19 11/26/19 Previous Rx's Medication Instructions Recorded Ondansetron Odt [Zofran Odt] 4 mg PO Q8HR PRN #12 tab 04/07/16 Ibuprofen [Motrin] 600 mg PO Q8HR PRN #20 tab 06/24/20 Allergies Allergy/AdvReac Type Severity Reaction Status Date / Time codeine Allergy Swelling Verified 06/24/20 15:24 Iodinated Contrast Media Allergy Swelling Verified 06/24/20 15:24 [Iodinated Contrast Media - Oral and] morphine Allergy Swelling Verified 06/24/20 15:24 Penicillins Allergy Rash/Hives Verified 06/24/20 15:24 shellfish derived [Shellfish] Allergy Swelling Verified 06/24/20 15:24 Review of Systems ROS Statement: Those systems with pertinent positive or pertinent negative responses have been documented in the HPI. ROS Other: All systems not noted in ROS Statement are negative. Past Medical History Past Medical History: Asthma Additional Past Medical History / Comment(s): childhood asthma, IBS resolved History of Any Multi-Drug Resistant Organisms: None Reported Past Surgical History: Section, Cholecystectomy, Tonsillectomy Additional Past Surgical History / Comment(s): neck cyst removed Past Anesthesia/Blood Transfusion Reactions: No Reported Reaction Past Psychological History: No Psychological Hx Reported Smoking Status: Never smoker Past Alcohol Use History: None Reported Past Drug Use History: None Reported - Past Family History Mother Family Medical History: No Reported History General Exam Limitations: no limitations General appearance: alert, in no apparent distress Head exam: Present: atraumatic, normocephalic, normal inspection Respiratory exam: Present: normal lung sounds bilaterally. Absent: respiratory distress, wheezes, rales, rhonchi, stridor Cardiovascular Exam: Present: regular rate, normal rhythm, normal heart sounds. Absent: systolic murmur, diastolic murmur, rubs, gallop, clicks Extremities exam: Present: other (Right ankle there is lateral malleolar swelling, tenderness there is no distal foot tenderness no proximal tib-fib tenderness full range of motion neurovascular intact) Course Vital Signs 06/24/20 15:21 Temperature 99.4 F Pulse Rate 96 Respiratory 20 Rate Blood Pressure 129/81 O2 Sat by Pulse 99 Oximetry Medical Decision Making - Medical Decision Making X-rays negative for acute fracture. Patient has a right ankle sprain. Patient we discharged stable condition. She'll follow-up with orthopedics no improvement. Disposition Clinical Impression: Right ankle sprain Disposition: HOME SELF-CARE Condition: Stable Instructions (If sedation given, give patient instructions): Ankle Sprain (ED) Additional Instructions: Please return to the Emergency Department if symptoms worsen or any other concerns. Prescriptions: Ibuprofen [Motrin] 600 mg PO Q8HR PRN #20 tab PRN Reason: Pain Is patient prescribed a controlled substance at d/c from ED?: No Referrals: Tawanda Wright DO [Primary Care Provider] - 1-2 days Zac Casanova MD [STAFF PHYSICIAN] - 1-2 days Time of Disposition: 16:35
--- NOTE | 2020-06-24 16:19 | XR ---
EXAMINATION TYPE: XR ankle complete RT, XR foot complete RT DATE OF EXAM: 06/24/2020 CLINICAL HISTORY: Injury today with pain. TECHNIQUE: Frontal, lateral and oblique images of the right ankle and foot are obtained. COMPARISON: None. FINDINGS: There is no acute fracture/dislocation evident in the right ankle. The ankle mortise appe ars within normal limits. Mild soft tissue swelling over the lateral malleolus. There is no acute fracture or dislocation evident in the right foot. The joint spaces in the right f oot are preserved. Overlying soft tissue is unremarkable. IMPRESSION: There is no acute fracture or dislocation in the right ankle or foot.
== END 2020-06-24 16:54 | disposition home or self-care (01) ==
LOC: EC 15:18
DX: S93.401A Sprain of unspecified ligament of right ankle, initial encounter (principal); J45.909 Unspecified asthma, uncomplicated; K58.9 Irritable bowel syndrome, unspecified; Z79.1 Long term (current) use of non-steroidal anti-inflammatories (NSAID); Z88.0 Allergy status to penicillin; X58.XXXA Exposure to other specified factors, initial encounter
CPT/HCPCS: 99283

== ENCOUNTER → 2021-05-16 | Outpatient (CLI) | payer OTHER ==
--- NOTE | 2021-05-27 16:37 | HM ---
HOLTER MONITOR REPORT The patient was monitored for 48 hours. Baseline rhythm is sinus mechanism with normal conduction, the average rate 94 beats per minute, minimum 63, maximum 150 beats per minute. Ventricular ectopic activity was not present. Supraventricular ectopic activity was present in the form of rare single PACs. No atrial fibrillation was noted. No symptoms were reported. MMODL / IJN: [id number] /
== END | disposition home or self-care (01) ==
LOC: RADECHMAIN 12:07
PROVIDERS: ATTEND Family Medicine
DX: I49.1 Atrial premature depolarization (principal)
CPT/HCPCS: 93225; 93226

== ENCOUNTER → 2021-10-25 | Outpatient (CLI) | payer OTHER ==
--- NOTE | 2021-10-25 10:33 | CT ---
EXAMINATION TYPE: CT brain wo con CT DLP: 1120.9 mGycm, Automated exposure control for dose reduction was used. DATE OF EXAM: 10/25/2021 8:26 AM COMPARISON: CT brain/C-spine 04/07/2016. CLINICAL INDICATION:Female, 21 years old with history of R51 STEVENS, H91.90 Hearing loss, H93.A2 Tinnitus , left ear pain and cant hear out of left ear TECHNIQUE: Brain: Multiple axial CT images of the brain were obtained without IV contrast. FINDINGS: Brain: Extra-axial spaces: No abnormal extra-axial fluid collections. Ventricular system: Within normal limits Cerebral parenchyma: No acute intraparenchymal hemorrhage or mass effect. The collado-white junction is well differentiated. Cerebellum: Unremarkable. Mass effect: No evidence of midline shift. Intracranial vasculature: unremarkable Soft tissues: Normal. Calvarium/osseous structures: No depressed skull fracture. Paranasal sinuses and mastoid air cells: Mild scattered paranasal sinus disease. Visualized orbits: Orbital contents are intact. IMPRESSION: No acute intracranial process.
--- NOTE | 2021-10-25 10:33 | CT ---
EXAMINATION TYPE: CT iac wo con CT DLP: Combined DLP for head and IAC of 1120.9. mGycm, Automated exposure control for dose reduction was used. DATE OF EXAM: 10/25/2021 8:26 AM INDICATION: Patient age:Female; 21 years old; Reason for study: R51 STEVENS, H91.90 Hearing loss, left, H93.A2 Tinnitus. COMPARISON: CT head same day. TECHNIQUE: Multiple thin axial images were obtained through the temporal bones and internal auditory canals. Additional coronal reformatted images were obtained. No IV contrast was utilized. STENVER a nd POSCHL views were created on a separate work station. FINDINGS: Right Temporal Bone: External Ear: The external auditory canal is unremarkable, The tympanic membrane is present and unrem arkable. Middle Ear: The ossicles demonstrate a normal appearance. Prussak's space is clear and the scutum i s intact. There is no evidence of osseous erosion and the tegmen tympani is intact. Inner Ear: Cochlea, vestibule and semi circular canals are unremarkable. No evidence of carotid zoya l dehiscence. Two and a half turns of the cochlea are identified. The vestibular aqueduct is not enl arged. Mastoid Air Cells: The mastoid air cells are clear. The tegmen mastoideum is intact. The aditus ad an trum is clear. Internal Auditory Canal: The internal auditory canal is unremarkable. Left Temporal Bone: External Ear: The external auditory canal is unremarkable, The tympanic membrane is present and unrem arkable. Middle Ear: The ossicles demonstrate a normal appearance. Prussak's space is clear and the scutum i s intact. There is no evidence of osseous erosion and the tegmen tympani is intact. Inner Ear: Cochlea, vestibule and semi circular canals are unremarkable. No evidence of carotid zoya l dehiscence. Two and a half turns of the cochlea are identified. The vestibular aqueduct is not enl arged. Mastoid Air Cells: The mastoid air cells are clear. The tegmen mastoideum is intact. The aditus ad an trum is clear. Internal Auditory Canal: The internal auditory canal is unremarkable. IMPRESSION: Normal internal auditory canal study.
== END | disposition home or self-care (01) ==
LOC: RADCTMAIN 07:46
PROVIDERS: ATTEND Otolaryngology
DX: R51.9 Headache, unspecified (principal); H93.A2 Pulsatile tinnitus, left ear; H92.02 Otalgia, left ear
CPT/HCPCS: 70450; 70480